=== PATIENT | female | born 1995 | race Native Hawaiian/Other Pacific Islander ===

== ENCOUNTER 2017-04-27 14:53 | Emergency (ER) | payer OTHER ==
[2017-04-27] MEDS ORDERED: MOTRIN PO ONE (16:23)
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
[2017-04-27 16:56] LABS: HCG Qualitative,Urine Negative (Negative)
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
[2017-04-27 17:50] VITALS: BP 116/73
== END 2017-04-27 17:50 | disposition home or self-care (01) ==
LOC: ED 14:53
DX: M54.5 Low back pain (principal); V87.7XXA Person injured in collision between other specified motor vehicles (traffic), initial encounter; Y93.89 Activity, other specified; Y99.8 Other external cause status; Y92.410 Unspecified street and highway as the place of occurrence of the external cause
CPT/HCPCS: 72100; 81025; 99284

== ENCOUNTER 2017-04-28 22:25 | Emergency (ER) | payer OTHER ==
[2017-04-28 22:56] VITALS: BP 115/62
--- NOTE | 2017-04-29 01:53 | Cat Scan Report ---
FINAL REPORT PROCEDURE: CT HEAD/BRAIN WO CON TECHNIQUE: Computerized tomography of the head was performed without contrast material. HISTORY: PAIN COMPARISON: No prior studies are available for comparison. FINDINGS: Skull and scalp: Normal. Paranasal sinuses: Normal. Ventricles and subarachnoid spaces: Normal. Cerebrum: No evidence of hemorrhage, acute infarction or mass . Cerebellum and brainstem: No evidence of hemorrhage, acute infarction or mass. Vasculature: Normal. Comments: None. IMPRESSION: Normal Examination
--- NOTE | 2017-04-29 01:54 | Cat Scan Report ---
FINAL REPORT PROCEDURE: CT CERVICAL SPINE WO CON TECHNIQUE: Computerized tomography of the cervical spine was performed from the skull base to T1 without contrast material. HISTORY: PAIN COMPARISON: No prior studies are available for comparison. FINDINGS: C1-2: No significant abnormality. C2-3: No significant abnormality. C3-4: No significant abnormality. C4-5: No significant abnormality. C5-6: No significant abnormality. C6-7: No significant abnormality. C7-T1: No significant abnormality. Other: Skull base and foramen magnum are intact. The cervical vertebrae are intact. Facet joints are intact. Prevertebral soft tissues are normal in thickness.. IMPRESSION: No significant abnormality.
[2017-04-29] MEDS ORDERED: MOTRIN PO ONE (02:25)
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
== END 2017-04-29 02:45 | disposition home or self-care (01) ==
LOC: ED 22:25
DX: S13.4XXA Sprain of ligaments of cervical spine, initial encounter (principal); V49.9XXA Car occupant (driver) (passenger) injured in unspecified traffic accident, initial encounter; Y93.89 Activity, other specified; Y92.89 Other specified places as the place of occurrence of the external cause; Y99.8 Other external cause status
CPT/HCPCS: 70450; 72125; 99283